=== PATIENT | female | born 1970 | race Caucasian/White ===

== ENCOUNTER 2017-09-17 11:42 | Outpatient (CLI) | payer OTHER ==
--- NOTE | 2017-09-17 13:41 | RAD ---
RIGHT FOOT THREE VIEWS: 09/17/2017 HISTORY: Right great toe injury four days ago. The patient has right foot pain and bruising. History of righ t toe surgery in 1999. COMPARISON: None available. FINDINGS: There are post surgical changes related to an osteotomy, involving the metatarsal of the right first toe/great toe, with question of a remote fracture deformity involving the proximal aspect of the firs t metatarsal. No acute fracture or dislocation is seen. Lisfranc joint is normally aligned. No oth er osseous abnormality. IMPRESSION: 1. No acute osseous abnormality, right foot. 2. Post surgical and probable remote post traumatic changes involving the first right metatarsal. POS: [facility]
== END 2017-09-17 11:43 | disposition home or self-care (01) ==
LOC: SCSRAD 11:42
PROVIDERS: ATTEND Nurse Practitioner Family
DX: M79.671 Pain in right foot (principal); Z98.890 Other specified postprocedural states

== ENCOUNTER 2018-08-12 10:02 | Outpatient (CLI) | payer OTHER ==
--- NOTE | 2018-08-12 10:31 | ULT ---
Abdominal Ultrasound: Multiple grayscale images of right upper quadrant obtained according to protocol. INDICATION: Pain FINDINGS: Liver: Normal Gallbladder: Surgically absent Gallbladder wall: Not applicable. Alarcon's Sign: Negative Common bile duct is normal. Ascites: None Spleen: Unremarkable. Pancreas: Partially obscured by bowel content, limiting assessment. Kidneys: No acute abnormalities. Aorta/IVC: No acute process. IMPRESSION: No acute abnormalities.
== END 2018-08-12 10:03 | disposition home or self-care (01) ==
LOC: ULT 10:02
PROVIDERS: ATTEND Nurse Practitioner Family
DX: R10.13 Epigastric pain (principal)
CPT/HCPCS: 76700